=== PATIENT | female | born 1980 | race Caucasian/White ===

== ENCOUNTER 2018-09-26 11:58 | Emergency (ER) | payer OTHER ==
[~2018-09-26] VITALS: Ht 167.6 cm; Wt 90.3 kg
[2018-09-26] MEDS ORDERED: IBUPROFEN 600 MG TAB PO STA (13:04)
[2018-09-26 13:18] LABS: CLARITY,URINE SL CLOUDY (CLEAR); COLOR,URINE YELLOW (YELLOW); LEUKOCYTE ESTERASE ,URINE NEGATIVE (NEGATIVE); NITRITE,URINE POSITIVE (NEGATIVE)
[2018-09-26 13:19] LABS: BILIRUBIN,URINE NEGATIVE (NEGATIVE); KETONES,URINE 1+ (NEGATIVE); PROTEIN,URINE DIPSTICK NEGATIVE (NEGATIVE); URINE UROBILINOGEN 0.2 mg/dL (0.2 - 1)
[2018-09-26 13:28] LABS: EPITHELIAL CELLS,URINE RARE /LPF
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
[2018-09-26] MEDS ORDERED: ULTRAM50 MG PO (14:42)
[2018-09-26] MEDS ORDERED: CYCLOBENZAPRINE5 MG PO (14:42)
== END 2018-09-26 16:12 | disposition home or self-care (01) ==
LOC: ER 11:58
DX: M54.2 Cervicalgia (principal); S16.1XXA Strain of muscle, fascia and tendon at neck level, initial encounter; S46.811A Strain of other muscles, fascia and tendons at shoulder and upper arm level, right arm, initial encounter; S80.11XA Contusion of right lower leg, initial encounter; S80.811A Abrasion, right lower leg, initial encounter; V43.62XA Car passenger injured in collision with other type car in traffic accident, initial encounter; Y92.488 Other paved roadways as the place of occurrence of the external cause; N30.90 Cystitis, unspecified without hematuria
CPT/HCPCS: 71046; 72125; 81001; 81025; 99283

== ENCOUNTER 2019-04-10 07:58 | Inpatient (IN) | payer OTHER ==
[~2019-04-10] VITALS: Ht 167.6 cm; Wt 86.2 kg
[~2019-04-10 07:58] MED LIST: CYCLOBENZAPRINE5 MG PO; ULTRAM50 MG PO
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
[2019-04-10] MEDS ORDERED: SODIUM CHLORIDE 0.9% 1000ML 1,000 ML IV STA (08:11)
[2019-04-10 08:28] LABS: BASOPHILS % 0.1 % (0.0-1.0); HEMATOCRIT 32.4 % (34.2-44.1); HEMOGLOBIN 9.9 g/dL (12.0-16.0); LYMPHOCYTES # (AUTO) 1.2 (1.0-3.2); LYMPHOCYTES % 9.8 % (18.0-39.1); MEAN CORPUSCULAR HEMOGLOBIN 21.8 pg (28-32); MEAN CORPUSCULAR HGB CONC 30.6 g/dL (31-35); MEAN CORPUSCULAR VOLUME 71.2 fL (81-99); MONOCYTES # (AUTO) 0.7 (0.2-0.8); MONOCYTES % 5.8 % (4.4-11.3); NEUTROPHILS # (AUTO) 10.3 (2.1-6.9); NEUTROPHILS % 83.8 % (38.7-80.0); PLATELET COUNT 287 x10e3/uL (140-360); RED BLOOD COUNT 4.55 x10e6/uL (3.6-5.1); RED CELL DISTRIBUTION WIDTH 15.1 % (11.7-14.4)
[2019-04-10 08:40] LABS: INR 1.11; PARTIAL THROMBOPLASTIN TIME 34.6 seconds (23.8-35.5); PROTHROMBIN TIME 14.8 seconds (11.9-14.5)
[2019-04-10] MEDS ORDERED: IBUPROFEN 800MG/ 250ML 250 ML IV ONE (08:45)
[2019-04-10 08:53] LABS: ALANINE AMINOTRANSFERASE 15 IU/L (0-55); ALBUMIN 3.1 g/dL (3.5-5.0); ALBUMIN/GLOBULIN RATIO 0.6 (0.8-2.0); ALKALINE PHOSPHATASE 96 IU/L (40-150); ANION GAP 15.8 mmol/L (8-16); BLOOD UREA NITROGEN 9 mg/dL (7-26); BUN/CREATININE RATIO 13 (6-25); CARBON DIOXIDE 22 mmol/L (22-29); CHLORIDE 92 mmol/L (98-107); CREATININE, SERUM 0.67 mg/dL (0.57-1.11); EST GLOMERULAR FILTRATION RATE > 60 ML/MIN (60-); GLUCOSE 230 mg/dL (74-118); MAGNESIUM 1.8 MG/DL (1.3-2.1); SODIUM 127 mmol/L (136-145)
--- NOTE | 2019-04-10 08:56 | Diagnostic Imaging Report ---
EXAMINATION: CHEST SINGLE (PORTABLE) INDICATION: Fever COMPARISON: Chest radiograph 09/26/2018 FINDINGS: LINES/TUBES:EKG leads overlie the chest. LUNGS:The lungs are well-inflated. No focal consolidation or pulmonary edema. PLEURA:No pleural effusion or pneumothorax. MEDIASTINUM:The cardiomediastinal silhouette appears normal in size and shape. BONES/SOFT TISSUES:No acute osseous injury. ABDOMEN:No free air under the diaphragm. IMPRESSION: No focal pneumonia or pulmonary edema. Signed by: Clinton Ortiz MD on 04/10/2019 8:52 AM
[2019-04-10 08:57] LABS: CREATINE KINASE < 7 IU/L (29-168); POTASSIUM 2.8 mmol/L (3.5-5.1)
--- NOTE | 2019-04-10 08:57 | NUR ---
DR. MCKENNA AND Robert HERNANDEZ RN NOTIFIED AND AWARE OF CRITICAL LAB VALUE; POTASSIUM 2.8.
[2019-04-10 09:04] LABS: BILIRUBIN,URINE NEGATIVE (NEGATIVE); CLARITY,URINE CLOUDY (CLEAR); COLOR,URINE YELLOW (YELLOW); LEUKOCYTE ESTERASE ,URINE SMALL (NEGATIVE); NITRITE,URINE NEGATIVE (NEGATIVE); PROTEIN,URINE DIPSTICK 1+ (NEGATIVE); URINE UROBILINOGEN 0.2 mg/dL (0.2 - 1)
[2019-04-10] MEDS ORDERED: POTASSIUM CHLORIDE 20 MEQ TAB CR PO STA (09:06)
[2019-04-10 09:14] LABS: KETONES,URINE 3+ (NEGATIVE)
[2019-04-10 09:16] LABS: BACTERIA,URINE MANY /HPF; EPITHELIAL CELLS,URINE MANY /LPF; RBC,URINE 21-50 /HPF (0-5); WBC,URINE (MAN) >50 /HPF (0-5); YEAST,URINE MODERATE
[2019-04-10 09:17] LABS: PREGNANCY TEST, URINE NEGATIVE (NEGATIVE)
[2019-04-10] MEDS ORDERED: SODIUM CHLORIDE 0.9% 1000ML 1,000 ML IV ONE (09:40)
[2019-04-10] MEDS: CEFTRIAXONE SOD 1 GM/NS 50 ML 50 ML IV SCH ×2 (10:16→21:52)
[2019-04-10] MEDS ORDERED: ONDANSETRON HCL INJ 2MG/ML 2ML 2 MG/ML VIAL IV PRN (10:30)
[2019-04-10] MEDS ORDERED: ACETAMINOPHEN 1000 MG/100 ML IV PRN (10:30)
--- NOTE | 2019-04-10 11:45 | NUR ---
STILL WAITING ON CT READ
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
[2019-04-10] MEDS: KCL 20MEQ/.9 SOD CHL 1,000 ML IV SCH ×2 (12:40→15:22)
[2019-04-10 15:00] VITALS: BP 120/74
[2019-04-10] MEDS: MORPHINE SULFATE INJ 4 MG/ML INJ 1ML IV PRN ×2 (15:03→20:13)
--- NOTE | 2019-04-10 15:15 | NUR ---
Pt received from ER at this time, she was admitted for pyelonephritis. Pt is aox4 and able to verbalize needs. Pt is ambulatory and skin is intact. pt is afebrile at this time. She continues on IV fluids NS/KCL 20mEq @ 125ml//hr and well tolerated.
[2019-04-10 15:24] VITALS: BP 120/74
[2019-04-10 15:29] VITALS: BP 120/74
[2019-04-10] MEDS ORDERED: DEXTROSE 50% SYRINGE 50 ML IV PRN (17:30)
[2019-04-10 20:00] VITALS: BP 120/74
[2019-04-10] MEDS: ONDANSETRON HCL INJ 2MG/ML 2ML 2 MG/ML VIAL IV PRN (20:13)
[2019-04-10] MEDS: INSULIN REGULAR, HUMAN 100 UNIT/1 ML 3ML VIAL SQ SCH (20:14)
[2019-04-10 20:53] VITALS: BP 146/69
[2019-04-11] VITALS (7 sets, daily range): BP systolic 110–121; BP diastolic 61–78
--- NOTE | 2019-04-11 04:56 | NUR ---
Received patient from day nurse, patient is alert and oriented, safety and fall precautions maintained. Addendum: 04/11/19 at 0458 by Adbiel Rushing RN time and date: 04/10/19 at 1902
[2019-04-11 05:26] LABS: BASOPHILS % 0.1 % (0.0-1.0); EOSINOPHILS % 0.1 % (0.0-6.0); HEMATOCRIT 25.9 % (34.2-44.1); HEMOGLOBIN 7.7 g/dL (12.0-16.0); LYMPHOCYTES # (AUTO) 1.4 (1.0-3.2); MEAN CORPUSCULAR HEMOGLOBIN 21.9 pg (28-32); MEAN CORPUSCULAR HGB CONC 29.7 g/dL (31-35); MEAN CORPUSCULAR VOLUME 73.6 fL (81-99); MONOCYTES % 10.2 % (4.4-11.3); NEUTROPHILS # (AUTO) 7.5 (2.1-6.9); NEUTROPHILS % 74.8 % (38.7-80.0); PLATELET COUNT 232 x10e3/uL (140-360); RED BLOOD COUNT 3.52 x10e6/uL (3.6-5.1); RED CELL DISTRIBUTION WIDTH 15.3 % (11.7-14.4)
[2019-04-11 05:52] LABS: ALANINE AMINOTRANSFERASE 13 IU/L (0-55); ALBUMIN 2.4 g/dL (3.5-5.0); ALBUMIN/GLOBULIN RATIO 0.6 (0.8-2.0); ALKALINE PHOSPHATASE 97 IU/L (40-150); ANION GAP 15.1 mmol/L (8-16); BLOOD UREA NITROGEN 5 mg/dL (7-26); BUN/CREATININE RATIO 8 (6-25); CALCIUM 8.6 mg/dL (8.4-10.2); CARBON DIOXIDE 22 mmol/L (22-29); CHLORIDE 100 mmol/L (98-107); CREATININE, SERUM 0.59 mg/dL (0.57-1.11); EST GLOMERULAR FILTRATION RATE > 60 ML/MIN (60-); GLUCOSE 193 mg/dL (74-118); POTASSIUM 3.1 mmol/L (3.5-5.1); SODIUM 134 mmol/L (136-145)
--- NOTE | 2019-04-11 06:55 | NUR ---
patient endorsed to next shift for continuity of care.
[2019-04-11] MEDS: INSULIN REGULAR, HUMAN 100 UNIT/1 ML 3ML VIAL SQ SCH ×4 (07:58→21:00)
[2019-04-11] MEDS: CEFTRIAXONE SOD 1 GM/NS 50 ML 50 ML IV SCH ×2 (07:58→21:30)
[2019-04-11] MEDS: ACETAMINOPHEN 325 MG TAB PO PRN ×2 (08:00→16:30)
[2019-04-11] MEDS: MORPHINE SULFATE INJ 4 MG/ML INJ 1ML IV PRN ×3 (08:03→21:21)
--- NOTE | 2019-04-11 09:30 | NUR ---
ASSESSMENT: No concerns Pt didn't express any concerns. Intervention: Provided hospitality and information on how to reach port traffic manager, if needed. Outcome: Pt expressed appreciation for visit. No need to follow at this time. NITIN SCHAFFER Assembler [employer] [facility] Department O: [phone] Pager: [phone] ([phone] number calling from)
[2019-04-11 10:31] LABS: LYMPHOCYTES % (MANUAL) 17 % (19-48); MONOCYTES % (MANUAL) 9 % (3.4-9.0); NEUTROPHILS % (MANUAL) 73 % (40-74)
[2019-04-11 10:32] LABS: ANISOCYTOSIS SLIGHT; MICROCYTOSIS SLIGHT; POIKILOCYTOSIS SLIGHT
[2019-04-11 10:33] LABS: OVALOCYTES FEW; PLATELET ESTIMATE ADEQUATE; PLATELET MORPHOLOGY COMMENT FEW LARGE; RBC MORPHOLOGY COMMENT ABNORMAL
[2019-04-11] MEDS ORDERED: POTASSIUM CHLORIDE 20 MEQ TAB CR PO NR ×2 (12:45→14:00)
[2019-04-11 14:11] LABS: BASOPHILS % 0.2 % (0.0-1.0); EOSINOPHILS % 0.2 % (0.0-6.0); HEMOGLOBIN 7.9 g/dL (12.0-16.0); LYMPHOCYTES # (AUTO) 1.8 (1.0-3.2); LYMPHOCYTES % 17.7 % (18.0-39.1); MEAN CORPUSCULAR HGB CONC 30.4 g/dL (31-35); MEAN CORPUSCULAR VOLUME 72.4 fL (81-99); NEUTROPHILS # (AUTO) 7.1 (2.1-6.9); NEUTROPHILS % 71.2 % (38.7-80.0); PLATELET COUNT 272 x10e3/uL (140-360); RED BLOOD COUNT 3.59 x10e6/uL (3.6-5.1); RED CELL DISTRIBUTION WIDTH 15.3 % (11.7-14.4)
[2019-04-11] MEDS ORDERED: FLUCONAZOLE 200 MG/100 ML 100 ML IV SCH (17:30)
[2019-04-11 18:11] LABS: FREE THYROXINE INDEX 2.3892 (1.4-3.8); THYROID STIMULATING HORMONE 1.063 uIU/mL (0.350-4.940)
--- NOTE | 2019-04-11 19:20 | NUR ---
Patient received sitting up in bed. AAO x 4. No complaints of pain. Respirations even and non-labored. Bed locked and in lowest position. Bed rails up x 2. Patient instructed to call for assistance when needed. Call light within reach.
[2019-04-11] MEDS ORDERED: SODIUM CHLORIDE 0.9% 250ML 250 ML ONE (21:27)
[2019-04-12] VITALS (8 sets, daily range): BP systolic 113–135; BP diastolic 75–85
[2019-04-12] MEDS: ONDANSETRON HCL INJ 2MG/ML 2ML 2 MG/ML VIAL IV PRN (00:55)
[2019-04-12] MEDS: MORPHINE SULFATE INJ 4 MG/ML INJ 1ML IV PRN ×3 (01:21→21:15)
[2019-04-12 05:34] LABS: BASOPHILS % 0.2 % (0.0-1.0); EOSINOPHILS % 0.2 % (0.0-6.0); HEMATOCRIT 25.5 % (34.2-44.1); HEMOGLOBIN 7.7 g/dL (12.0-16.0); LYMPHOCYTES # (AUTO) 1.9 (1.0-3.2); LYMPHOCYTES % 17.4 % (18.0-39.1); MEAN CORPUSCULAR HEMOGLOBIN 21.8 pg (28-32); MEAN CORPUSCULAR HGB CONC 30.2 g/dL (31-35); NEUTROPHILS # (AUTO) 7.8 (2.1-6.9); NEUTROPHILS % 72.5 % (38.7-80.0); PLATELET COUNT 284 x10e3/uL (140-360); RED BLOOD COUNT 3.54 x10e6/uL (3.6-5.1); RED CELL DISTRIBUTION WIDTH 15.5 % (11.7-14.4)
[2019-04-12 05:57] LABS: ANION GAP 14.1 mmol/L (8-16); BLOOD UREA NITROGEN < 5 mg/dL (7-26); CALCIUM 8.6 mg/dL (8.4-10.2); CARBON DIOXIDE 25 mmol/L (22-29); CHLORIDE 96 mmol/L (98-107); CREATININE, SERUM 0.52 mg/dL (0.57-1.11); EST GLOMERULAR FILTRATION RATE > 60 ML/MIN (60-); GLUCOSE 151 mg/dL (74-118); POTASSIUM 3.1 mmol/L (3.5-5.1); SODIUM 132 mmol/L (136-145)
[2019-04-12 06:07] LABS: BUN/CREATININE RATIO 10 (6-25)
--- NOTE | 2019-04-12 07:00 | NUR ---
BEDSIDE SHIFT REPORT RECEIVED FROM THE COTTON BALL MACHINE TENDER RN. EDUCATED PT ABOUT FALL PRECAUTIONS. CALL LIGHT WITH IN EASY REACH. INSTRUCTED PT TO USE CALL LIGHT FOR ALL THE NEEDS. PT VERBALIZED UNDERSTANDING. BED IS LOW AND LOCKED. SIDE RAILS X2. PT DENIES NEEDS AT THIS TIME.
--- NOTE | 2019-04-12 07:00 | NUR ---
Walking rounds done. Shift report given to oncoming nurse.
--- NOTE | 2019-04-12 08:00 | NUR ---
PAGED DR. VILLANUEVA AND REPORTED PT POTASSIUM AND HGB LEVELS. WAITING FOR THE CALL BACK.
[2019-04-12] MEDS: INSULIN REGULAR, HUMAN 100 UNIT/1 ML 3ML VIAL SQ SCH ×4 (08:15→21:00)
[2019-04-12] MEDS ORDERED: POTASSIUM CHLORIDE 10MEQ EA PO ONE ×2 (08:30→10:30)
[2019-04-12] MEDS: CEFTRIAXONE SOD 1 GM/NS 50 ML 50 ML IV SCH ×2 (08:30→21:15)
[2019-04-12] MEDS: ACETAMINOPHEN 325 MG TAB PO PRN (09:00)
[2019-04-12] MEDS ORDERED: ONDANSETRON HCL 4 MG ORAL DISINTEGRATING TAB PO PRN (11:00)
--- NOTE | 2019-04-12 12:00 | NUR ---
INFORMED PT ABOUT OCCULT BLOOD STOOL TEST. NO BM FOR PT YET. PAGED DR. VILLANUEVA REGARDING CONSTIPATION.
--- NOTE | 2019-04-12 12:00 | NUR ---
PAGED DR. VILLANUEVA REGARDING ULTRA SOUND ORDER.
[2019-04-12] MEDS ORDERED: LACTULOSE SYRUP 20 GM/30 ML UDC PO ONE (14:00)
[2019-04-12 16:16] LABS: BASOPHILS % 0.2 % (0.0-1.0); EOSINOPHILS % 0.3 % (0.0-6.0); HEMATOCRIT 27.2 % (34.2-44.1); LYMPHOCYTES # (AUTO) 2.4 (1.0-3.2); MEAN CORPUSCULAR HEMOGLOBIN 21.5 pg (28-32); MEAN CORPUSCULAR HGB CONC 29.4 g/dL (31-35); MEAN CORPUSCULAR VOLUME 73.1 fL (81-99); MONOCYTES # (AUTO) 0.9 (0.2-0.8); NEUTROPHILS # (AUTO) 6.6 (2.1-6.9); NEUTROPHILS % 65.7 % (38.7-80.0); PLATELET COUNT 308 x10e3/uL (140-360); RED BLOOD COUNT 3.72 x10e6/uL (3.6-5.1); RED CELL DISTRIBUTION WIDTH 15.6 % (11.7-14.4)
[2019-04-12] MEDS ORDERED: FAMOTIDINE INJ 20 MG in SODIUM CHLORIDE 0.9% 50ML 50 ML IV ONE (17:00)
[2019-04-12] MEDS ORDERED: IRON DEXTRAN INJ 50 MG in SODIUM CHLORIDE 0.9% 100 ML IV ONE (17:00)
[2019-04-12] MEDS ORDERED: DEXAMETHASONE PHOS 10MG INJ 20 MG in SODIUM CHLORIDE 0.9% 50ML 50 ML IV ONE (17:00)
[2019-04-12] MEDS ORDERED: DIPHENHYDRAMINE HCL INJ 25 MG in SODIUM CHLORIDE 0.9% 50ML 50 ML IV ONE (17:00)
[2019-04-12] MEDS: METFORMIN HCL 500 MG TAB PO SCH (17:55)
[2019-04-12] MEDS: GLIMEPIRIDE 2 MG TAB PO SCH (17:55)
[2019-04-12] MEDS ORDERED: IRON DEXTRAN INJ 500 MG in SODIUM CHLORIDE 0.9% 500ML 500 ML IV ONE ×2 (19:00→20:00)
--- NOTE | 2019-04-12 19:00 | NUR ---
BEDSIDE SHIFT REPORT GIVEN TO THE MARKER MACHINE ATTENDANT RN. PT DENIED FURTHER NEEDS
[2019-04-12] MEDS ORDERED: FLUCONAZOLE 200 MG/100 ML 100 ML IV SCH (19:30)
--- NOTE | 2019-04-12 19:30 | NUR ---
Patient received sitting up in bed. AAO x 4. No acute distress noted. Call light within reach.
[2019-04-13 00:25] VITALS: BP 126/66
[2019-04-13] MEDS: MORPHINE SULFATE INJ 4 MG/ML INJ 1ML IV PRN ×3 (04:27→11:14)
[2019-04-13 05:02] VITALS: BP 127/75
--- NOTE | 2019-04-13 05:56 | Diagnostic Imaging Report ---
EXAMINATION: CHEST SINGLE (PORTABLE) INDICATION: Shortness of breath. COMPARISON: Chest radiograph 04/10/2019. FINDINGS: LINES/TUBES: None. LUNGS: Low lung volumes with patchy bibasilar opacities. Mild perihilar and interstitial opacities. PLEURA: No pleural effusion or pneumothorax. MEDIASTINUM: Unremarkable. BONES/SOFT TISSUES: No acute osseous injury. ABDOMEN: No free air under the diaphragm. IMPRESSION: Low lung volumes, cannot exclude mild pulmonary interstitial edema. Patchy bibasilar opacities, likely atelectasis. Signed by: Dr. Dileep Akers MD on 04/13/2019 5:52 AM
[2019-04-13 06:04] LABS: BASOPHILS % 0.1 % (0.0-1.0); HEMATOCRIT 30.3 % (34.2-44.1); HEMOGLOBIN 8.9 g/dL (12.0-16.0); LYMPHOCYTES # (AUTO) 1.2 (1.0-3.2); LYMPHOCYTES % 13.4 % (18.0-39.1); MEAN CORPUSCULAR HEMOGLOBIN 21.5 pg (28-32); MEAN CORPUSCULAR HGB CONC 29.4 g/dL (31-35); MEAN CORPUSCULAR VOLUME 73.2 fL (81-99); MONOCYTES # (AUTO) 0.2 (0.2-0.8); MONOCYTES % 1.6 % (4.4-11.3); NEUTROPHILS # (AUTO) 7.6 (2.1-6.9); NEUTROPHILS % 83.6 % (38.7-80.0); PLATELET COUNT 386 x10e3/uL (140-360); RED BLOOD COUNT 4.14 x10e6/uL (3.6-5.1); RED CELL DISTRIBUTION WIDTH 15.9 % (11.7-14.4)
[2019-04-13 06:43] LABS: ANION GAP 17.8 mmol/L (8-16); BLOOD UREA NITROGEN 9 mg/dL (7-26); BUN/CREATININE RATIO 15 (6-25); CALCIUM 9.6 mg/dL (8.4-10.2); CARBON DIOXIDE 23 mmol/L (22-29); CHLORIDE 99 mmol/L (98-107); CREATININE, SERUM 0.62 mg/dL (0.57-1.11); EST GLOMERULAR FILTRATION RATE > 60 ML/MIN (60-); GLUCOSE 223 mg/dL (74-118); POTASSIUM 3.8 mmol/L (3.5-5.1); SODIUM 136 mmol/L (136-145)
--- NOTE | 2019-04-13 07:00 | NUR ---
Patient resting comfortably. Shift report given to oncoming nurse about patient's status.
[2019-04-13 07:05] VITALS: BP 135/77
[2019-04-13] MEDS: METFORMIN HCL 500 MG TAB PO SCH (08:16)
[2019-04-13] MEDS: GLIMEPIRIDE 2 MG TAB PO SCH (08:18)
[2019-04-13] MEDS: INSULIN REGULAR, HUMAN 100 UNIT/1 ML 3ML VIAL SQ SCH ×3 (08:27→11:58)
[2019-04-13 08:30] VITALS: BP 135/77
--- NOTE | 2019-04-13 08:49 | NUR ---
Left unit for US renal via w/c
[2019-04-13] MEDS: CEFTRIAXONE SOD 1 GM/NS 50 ML 50 ML IV SCH (09:06)
--- NOTE | 2019-04-13 09:28 | Diagnostic Imaging Report ---
EXAM: Renal Ultrasound INDICATION: ^pain ^[id number] ^[id number] COMPARISON: None TECHNIQUE: Transverse and longitudinal images of the kidneys and bladder were obtained. FINDINGS: Right Kidney: Length: 13.7 cm Appearance: Normal echogenicity. Collecting system: No hydronephrosis Stones: None Cyst/Mass: None Left Kidney: Length: 12.1 cm Appearance: Normal echogenicity. Collecting system: No hydronephrosis Stones: None Cyst/Mass: Left midpole 1.9 x 1.2 x 1.8 cm cyst with an internal septation and small peripheral area of associated vascularity. Left lower pole 1.5 x 1.4 x 1.4 cm simple anechoic cyst. Bladder: No mass or calculi. Bilateral ureteral jets not visualized. Prevoid volume estimate of 18.0 cc. IMPRESSION: No hydronephrosis or renal calculi. Left midpole 1.9 x 1.2 x 1.8 cm cyst with an internal septation and small peripheral area of associated vascularity (Bosniak 2). Left lower pole 1.5 x 1.4 x 1.4 cm simple anechoic cyst (Bosniak 1). Signed by: Clinton Ortiz MD on 04/13/2019 9:24 AM
[2019-04-13 10:00] VITALS: BP 135/77
[2019-04-13 11:11] VITALS: BP 152/82
[2019-04-13] MEDS ORDERED: CIPRO500 MG PO (12:04)
[2019-04-13] MEDS ORDERED: DIFLUCAN200 MG PO (12:05)
[2019-04-13] MEDS ORDERED: METFORMIN HCL500 MG PO (12:40)
[2019-04-13] MEDS ORDERED: GLIMEPIRIDE2 MG PO (12:40)
[2019-04-13] MEDS ORDERED: ULTRACET TABLE1 EACH (12:43)
== END 2019-04-13 13:55 | disposition home or self-care (01) | DRG 690 ==
LOC: ER 07:58 → ERHOLD 10:53 → MED/SURG2 14:54
DX: N10 Acute pyelonephritis (principal); E87.1 Hypo-osmolality and hyponatremia; B96.89 Other specified bacterial agents as the cause of diseases classified elsewhere; E87.6 Hypokalemia; E11.65 Type 2 diabetes mellitus with hyperglycemia; E78.5 Hyperlipidemia, unspecified; D50.9 Iron deficiency anemia, unspecified; Z79.4 Long term (current) use of insulin
CPT/HCPCS: 36415; 71045; 74176; 76770; 80048; 80053; 81001; 81025; 82550; 82553; 82607; 82948; 83036; 83540; 83605; 83735; 84436; 84443; 84466; 84479; 84484; 84702; 85025; 85045; 85610; 85730; 87040; 87086; 87186; 87400; 93005; 99284; J0696; J1100; J1200; J1450; J1750; J1817; J2270; J2405; J7030; J7040; J7050; Q0162